=== PATIENT | male | born 1990 | race Caucasian/White ===

== ENCOUNTER 2022-05-08 14:41 | Emergency (ER) | payer MEDICAID ==
[~2022-05-08] VITALS: Ht 180.3 cm; Wt 100.0 kg
[2022-05-08] MEDS ORDERED: LORazepam 2 mg/ml vial IV ONE (15:25)
[2022-05-08] MEDS ORDERED: normal saline 1000ML IV soln IV ONE (15:25)
[2022-05-08] MEDS ORDERED: ondansetron/PF 4mg/2ml inj IV ONE (15:25)
[2022-05-08 15:48] LABS: BASOPHILS % (AUTO) 0.9 % (0-1); HEMATOCRIT 39.7 % (42.0-52.0); HEMOGLOBIN 13.9 g/dl (14.0-17.9); LYMPHOCYTES # (AUTO) 0.8 X10'3 (1.1-4.8); LYMPHOCYTES % (AUTO) 21.4 % (21-51); MEAN CORPUSCULAR HGB CONC 34.9 g/dL (33.0-36.5); MEAN CORPUSCULAR VOLUME 97.5 FL (78-98); MEAN PLATELET VOLUME 6.3 FL (7.4-10.4); MONOCYTES # (AUTO) 0.7 X10'3 (0-0.9); MONOCYTES % (AUTO) 18.3 % (2-12); NEUTROPHILS # (AUTO) 2.1 X10'3 (1.8-7.7); NEUTROPHILS % (AUTO) 58.4 % (42-75); PLATELET COUNT 212 X10'3 (140-440); RED BLOOD COUNT 4.07 X10'6 (4.70-6.10); RED CELL DISTRIBUTION WIDTH 17.8 % (11.5-14.5); WHITE BLOOD COUNT 3.6 X10'3 (4.5-11.0)
[2022-05-08 15:57] LABS: ALANINE AMINOTRANSFERASE 94 U/L (12-78); ALBUMIN 4.2 G/DL (3.4-5.0); ALKALINE PHOSPHATASE 108 IU/L (46-116); ANION GAP 11 (8-16); ASPARTATE AMINO TRANSFERASE 54 U/L (10-37); BILIRUBIN,TOTAL 0.3 MG/DL (0.1-1.0); BLOOD UREA NITROGEN 9 MG/DL (7-18); BUN/CREATININE RATIO 9.3 (5.4-32.0); CALCIUM 9.7 MG/DL (8.5-10.1); CHLORIDE 104 MMOL/L (99-107); CREATININE 0.97 MG/DL (0.60-1.10); GLUCOSE 133 MG/DL (70-104); MAGNESIUM 2.2 MG/DL (1.5-2.4); SODIUM 142 MMOL/L (135-145); TOTAL CARBON DIOXIDE 27.2 MMOL/L (24-32); TOTAL PROTEIN 8.3 G/DL (6.4-8.2); eGFR > 90 ML/MIN
[2022-05-08 16:14] LABS: ANISOCYTOSIS 1+; PLATELET ESTIMATE NORMAL; TOTAL CELLS COUNTED 100
[2022-05-08 16:15] LABS: TEAR DROP CELLS FEW
[2022-05-08] MEDS ORDERED: LORazepam 1 MG tablet PO ONE ×2 (18:20→18:50)
[2022-05-08 18:24] LABS: ETHANOL < 0.010 GM/DL (0.0-0.010)
[2022-05-08] MEDS ORDERED: cloNIDine 0.1 mg tablet PO ONE (18:50)
[2022-05-08] MEDS ORDERED: LORA-269 PO (18:50)
[2022-05-08 18:51] LABS: CLARITY,URINE CLEAR (Clear); COLOR,URINE YELLOW (Yellow); GLUCOSE, URINE NEGATIVE (Neg); KETONES,URINE NEGATIVE (Neg); LEUKOCYTE ESTERASE ,URINE NEGATIVE (Neg); NITRITES, URINE NEGATIVE (Neg); OCCULT BLOOD,URINE NEGATIVE (Neg); PROTEIN,URINE NEGATIVE (Neg); UROBILINOGEN,URINE 0.2 E.U/dL (0.2-1.0)
[2022-05-08 18:54] LABS: UA COLLECTION TYPE VOIDED
[2022-05-08 18:57] LABS: URINE AMPHETAMINE SCREEN NEGATIVE (Neg); URINE BARBITUATE SCREEN POSITIVE (Neg); URINE BENZODIAZEPINES SCREEN POSITIVE (Neg); URINE CANNABINOID SCREEN NEGATIVE (Neg); URINE COCAINE SCREEN NEGATIVE (Neg); URINE METHADONE SCREEN NEGATIVE (Neg); URINE OPIATE SCREEN NEGATIVE (Neg); URINE PHENCYCLIDINE SCREEN NEGATIVE (Neg)
[2022-05-08 19:35] VITALS: BP 135/89
== END 2022-05-08 19:40 | disposition home or self-care (01) ==
LOC: ER 14:42
DX: F10.239 Alcohol dependence with withdrawal, unspecified (principal); R10.30 Lower abdominal pain, unspecified; R19.7 Diarrhea, unspecified; R00.2 Palpitations; Y90.5 Blood alcohol level of 100-119 mg/100 ml
CPT/HCPCS: 36415; 80053; 80305; 80320; 81003; 83735; 85007; 85025; 93005; 99284; J7030